=== PATIENT | female | born 1975 | race Caucasian/White ===

== ENCOUNTER 2016-10-11 14:47 | Day surgery (SDC) | payer BC ==
[2016-10-11] MEDS ORDERED: NS 0.9% 1000 ML* 1,000 ML IV ONE (14:58)
[2016-10-11 15:37] LABS: Hematocrit 42 % (35-47); Hemoglobin 13.7 g/dl (12.0-16.0); Mean Corpuscular HGB Conc 33 g/dl (31-36); Mean Corpuscular Hemoglobin 30 pg (27-31); Mean Corpuscular Volume 91 fL (80-97); Mean Platelet Volume 9 um3 (7.4-10.4); Red Blood Count 4.58 10^6/ul (4.0-5.4); Red Cell Distribution Width 14 % (10.5-15); White Blood Count 9.5 10^3/ul (3.5-10.8)
[2016-10-11 15:53] LABS: ALT 17 U/L (7-52); AST 13 U/L (13-39); Albumin 4.5 g/dL (3.2-5.2); Alkaline Phosphatase 54 U/L (34-104); Anion Gap 4 mmol/L (2-11); BUN/Creatinine Ratio 14.6 (8-20); Blood Urea Nitrogen 13 mg/dL (6-24); C Reactive Protein 38.99 mg/L (< 5.00); CO2 Carbon Dioxide 28 mmol/L (22-32); Calcium 9.8 mg/dL (8.6-10.3); Chloride 103 mmol/L (101-111); EGFR African American 89.5 (>60); EGFR Non-African American 69.6 (>60); Globulin 2.8 g/dL (2-4); Glucose 83 mg/dL (70-100); Lipase 18 U/L (11.0-82.0); Potassium 3.5 mmol/L (3.5-5.0); Sodium 135 mmol/L (133-145); Total Protein 7.3 g/dL (6.4-8.9)
[2016-10-11 16:08] LABS: Urine Bilirubin Negative (Negative); Urine Glucose Negative (Negative); Urine Nitrite Negative (Negative)
[2016-10-11] MEDS ORDERED: Iohexol 300* (CONTRAST) 10 ML SDV IV ONE (16:39)
--- NOTE | 2016-10-11 17:42 | RAD ---
INDICATION: Right lower quadrant abdominal pain. COMPARISON: There are no prior studies available for comparison. TECHNIQUE: A CT scan of the abdomen and pelvis was performed with intravenous and oral contrast following intravenous injection of 80 ml of Omnipaque 300 nonionic contrast. Contiguous axial sections were obtained from the lung bases through the symphysis pubis. Images were reconstructed in the coronal and sagittal planes. FINDINGS: The lung bases are clear. No pleural effusion is present. The liver and spleen are within normal limits without significant focal abnormality. No calcified gallstones are seen. The pancreas appears to be within normal limits in size. The kidneys and adrenal glands are normal in size. No hydronephrosis is seen. The right kidney is slightly ptotic. No significant focal renal abnormality is seen. There is a tiny 0.4 cm cyst in the mid pole of the left kidney. The aorta is normal in caliber and demonstrates homogeneous contrast opacification. No significant enlarged retroperitoneal lymph nodes are seen. The stomach, small and large bowel appear nondistended. There is a hypodense structure which is not well-defined posterior to the cecum measuring approximately 0.8 cm in thickness suspicious for a dilated appendix. This does not fill with contrast. There is no evidence for diverticulitis or colitis. The uterus is anteverted and normal in size. No free intraperitoneal air or fluid is seen. No significant focal osseous abnormality is seen. IMPRESSION: FOCAL AREA OF INCREASED SOFT TISSUE DENSITY POSTERIOR TO THE CECUM NONSPECIFIC ALTHOUGH SUSPICIOUS FOR ACUTE APPENDICITIS.
[2016-10-11] MEDS ORDERED: Bupivacaine 0.25% EPI 200,000* 30 ML SDV ONE (19:04)
[2016-10-11] MEDS ORDERED: ceFOXitin 2 GM IVPREMIX* 2 GM/50 ML BAG ONE (19:24)
[2016-10-11] MEDS ORDERED: fentaNYL* 50 MCG/ML 2 ML VIAL (100 MCG VIAL) ONE (19:31)
[2016-10-11] MEDS ORDERED: Rocuronium* 10 MG/ML VIAL ONE (19:35)
[2016-10-11] MEDS ORDERED: Acetaminophen TAB* 325 MG PO PRN (19:38)
[2016-10-11] MEDS ORDERED: HYDROmorphone INJ* 1 MG/ML CARPUJECT SYRINGE IV PRN (19:38)
[2016-10-11] MEDS ORDERED: oxyCODONE/Acetamin 5/325 MG* TAB PO PRN (19:38)
[2016-10-11] MEDS ORDERED: Ibuprofen TAB* 600 MG PO PRN (19:38)
[2016-10-11] MEDS ORDERED: Ondansetron INJ* 2 MG/ML VIAL IV PRN (19:38)
[2016-10-11] MEDS ORDERED: Ondansetron INJ* 2 MG/ML VIAL ONE (19:47)
[2016-10-11] MEDS ORDERED: Ketorolac INJ* 30 MG/ML 1 ML VIAL ONE (19:47)
[2016-10-11] MEDS ORDERED: Lidocaine 2% PF * 5 ML VIAL ONE (19:47)
[2016-10-11] MEDS ORDERED: Propofol* 10 MG/ML 20 ML BTL IV PUSH ONE (19:47)
[2016-10-11] MEDS ORDERED: Dexamethasone IV* 4 MG/ML 1 ML (4 MG) ONE (19:47)
[2016-10-11] MEDS ORDERED: Glycopyrrolate IV* 0.2 MG/ML 1 ML VIAL ONE (20:03)
[2016-10-11] MEDS ORDERED: Neostigmine Methylsulfate* 2 MG/2 ML SYRINGE ONE (20:03)
[2016-10-11] MEDS ORDERED: fentaNYL* 50 MCG/ML 2 ML VIAL (100 MCG VIAL) IV PRN (20:20)
[2016-10-11] MEDS ORDERED: DiMENhydriNATE IV* 50 MG/ML VIAL IV PUSH PRN (20:20)
--- NOTE | 2016-10-11 21:10 | ED ---
David Sharpe Billy, scribed for Santy Ruano MD on 10/11/16 at 1535 . Abdominal Pain/Female - HPI Summary HPI Summary: Patient is a 40 year-old female coming to [facility] presenting with constant RLQ abdominal pain today. She states that the pain began as right-sided periumbilical pain yesterday morning along with a bloating sensation, and has since moved to the RLQ today. 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 Pain severity 6/ 10. Pain is worse with movement and turning, and improved with certain positions. No nausea or vomiting. No fevers or chills. LMP 1 week ago. - History of Current Complaint Chief Complaint: EDAbdPain Stated Complaint: LOWER RIGHT ABD PAIN Time Seen by Provider: 10/11/16 15:26 Hx Obtained From: Patient Hx Last Menstrual Period: last week Onset/Duration: Gradual Onset, Lasting Hours, Still Present Timing: Constant Severity Initially: Moderate Severity Currently: Moderate Pain Intensity: 6 Pain Scale Used: 0-10 Numeric Location: Discrete At: RLQ Aggravating Factor(s): Movement Alleviating Factor(s): Position Associated Signs and Symptoms: Positive: Diarrhea. Negative: Fever, Nausea, Vomiting Allergies/Adverse Reactions: Allergies Allergy/AdvReac Type Severity Reaction Status Date / Time Ciprofloxacin [From Cipro] Allergy JOINT PAIN Verified 10/11/16 14:48 AND SWELLING, RASH ENVIRONMENTAL Allergy RUNNY, Uncoded 10/11/16 14:48 NOSE, WATERY EYES PMH/Surg Hx/FS Hx/Imm Hx Cardiovascular History: Denies: Other Cardiovascular Problems/Disorders Respiratory History: Denies: Other Respiratory Problems/Disorders GI History: Denies: Other GI Disorders Musculoskeletal History: Denies: Other Musculoskeletal History Sensory History: Reports: Hx Contacts or Glasses - CONTACTS Denies: Hx Hearing Aid Opthamlomology History: Reports: Hx Contacts or Glasses - CONTACTS Neurological History: Denies: Other Neuro Impairments/Disorders Psychiatric History: Reports: Hx Anxiety - NO MEDS, Hx Depression - NO MEDS - Surgical History Surgery Procedure, Year, and Place: TONSILECTOMY, 2004, [facility]. D&C 2013 Hx Anesthesia Reactions: No Infectious Disease History: No Infectious Disease History: Denies: Traveled Outside the [place] in Last 30 Days - Family History Known Family History: Negative: Cardiac Disease, Hypertension, Diabetes - Social History Alcohol Use: Occasionally Alcohol Amount: 1-2 PER WEEK Substance Use Type: Reports: None Smoking Status (MU): Never Smoked Tobacco Have You Smoked in the Last Year: No Review of Systems Negative: Fever, Chills Positive: Abdominal Pain, Diarrhea. Negative: Vomiting, Nausea All Other Systems Reviewed And Are Negative: Yes Physical Exam - Summary Physical Exam Summary: VITAL SIGNS: Reviewed. GENERAL: Patient is a well developed and nourished female who is lying comfortable in the stretcher. Patient is not in any acute respiratory distress. HEAD AND FACE: Normocephalic and atraumatic. EYES: PERRLA, EOMI x 2, No injected conjunctiva. EARS: Hearing grossly intact. Ear canals and tympanic membranes are WNL. MOUTH: Oropharynx within normal limits. NECK: Supple, trachea is midline, no adenopathy, no JVD. CHEST: Symmetric, no tenderness at palpation LUNGS: Clear to auscultation bilaterally. No wheezing or crackles. CVS: RRR,, S1 and S2 present, no murmurs or gallops appreciated. ABDOMEN: Soft, RLQ tenderness. No signs of distention. Positive bowel sounds. No rebound no guarding, and no masses palpated. No abdominal bruit or pulsations. EXTREMITIES: FROM in all major joints, no edema, no cyanosis or clubbing. NEURO: Alert and oriented x 3. No acute neurological deficits. Speech is normal. SKIN: Dry and warm Triage Information Reviewed: Yes Vital Signs On Initial Exam: Initial Vitals Temp Pulse Resp BP Pulse Ox 98.2 F 85 18 132/87 97 10/11/16 14:48 10/11/16 14:48 10/11/16 14:48 10/11/16 14:48 10/11/16 14:48 Vital Signs Reviewed: Yes - [place] Coma Scale Coma Scale Total: 15 Diagnostics - Vital Signs Vital Signs Temp Pulse Resp BP Pulse Ox 10/11/16 15:01 68 99 10/11/16 15:00 103/74 10/11/16 14:48 98.2 F 85 18 132/87 97 - Laboratory Lab Results: Lab Results 10/11/16 10/11/16 10/11/16 Range/Units 15:25 15:25 15:25 WBC 9.5 (3.5-10.8) 10^3/ul RBC 4.58 (4.0-5.4) 10^6/ul Hgb 13.7 (12.0-16.0) g/dl Hct 42 (35-47) % MCV 91 (80-97) fL MCH 30 (27-31) pg MCHC 33 (31-36) g/dl RDW 14 (10.5-15) % Plt Count 260 (150-450) 10^3/ul MPV 9 (7.4-10.4) um3 Neut % (Auto) 73.4 (38-83) % Lymph % (Auto) 16.5 L (25-47) % [place] % (Auto) 6.5 (1-9) % Eos % (Auto) 2.2 (0-6) % Baso % (Auto) 1.4 (0-2) % Absolute Neuts (auto) 6.9 (1.5-7.7) 10^3/ul Absolute Lymphs (auto) 1.6 (1.0-4.8) 10^3/ul Absolute Monos (auto) 0.6 (0-0.8) 10^3/ul Absolute Eos (auto) 0.2 (0-0.6) 10^3/ul Absolute Basos (auto) 0.1 (0-0.2) 10^3/ul Absolute Nucleated RBC 0.01 10^3/ul Nucleated RBC % 0.1 INR (Anticoag Therapy) 0.94 (0.89-1.11) APTT 30.5 (26.0-36.3) seconds Sodium 135 (133-145) mmol/L Potassium 3.5 (3.5-5.0) mmol/L Chloride 103 (101-111) mmol/L Carbon Dioxide 28 (22-32) mmol/L Anion Gap 4 (2-11) mmol/L BUN 13 (6-24) mg/dL Creatinine 0.89 (0.51-0.95) mg/dL Est GFR ( Amer) 89.5 (>60) Est GFR (Non-Af Amer) 69.6 (>60) BUN/Creatinine Ratio 14.6 (8-20) Glucose 83 (70-100) mg/dL Lactic Acid (0.5-2.0) mmol/L Calcium 9.8 (8.6-10.3) mg/dL Total Bilirubin 0.40 (0.2-1.0) mg/dL AST 13 (13-39) U/L ALT 17 (7-52) U/L Alkaline Phosphatase 54 (34-104) U/L C-Reactive Protein 38.99 H (< 5.00) mg/L Total Protein 7.3 (6.4-8.9) g/dL Albumin 4.5 (3.2-5.2) g/dL Globulin 2.8 (2-4) g/dL Albumin/Globulin Ratio 1.6 (1-3) Lipase 18 (11.0-82.0) U/L Beta HCG, Quant < 0.60 mIU/mL Urine Color Urine Appearance Urine pH (5-9) Ur Specific [place] (1.010-1.030) Urine Protein (Negative) Urine Ketones (Negative) Urine Blood (Negative) Urine Nitrate (Negative) Urine Bilirubin (Negative) Urine Urobilinogen (Negative) Ur Leukocyte Esterase (Negative) Urine Glucose (Negative) 10/11/16 10/11/16 Range/Units 15:25 16:00 WBC (3.5-10.8) 10^3/ul RBC (4.0-5.4) 10^6/ul Hgb (12.0-16.0) g/dl Hct (35-47) % MCV (80-97) fL MCH (27-31) pg MCHC (31-36) g/dl RDW (10.5-15) % Plt Count (150-450) 10^3/ul MPV (7.4-10.4) um3 Neut % (Auto) (38-83) % Lymph % (Auto) (25-47) % [place] % (Auto) (1-9) % Eos % (Auto) (0-6) % Baso % (Auto) (0-2) % Absolute Neuts (auto) (1.5-7.7) 10^3/ul Absolute Lymphs (auto) (1.0-4.8) 10^3/ul Absolute Monos (auto) (0-0.8) 10^3/ul Absolute Eos (auto) (0-0.6) 10^3/ul Absolute Basos (auto) (0-0.2) 10^3/ul Absolute Nucleated RBC 10^3/ul Nucleated RBC % INR (Anticoag Therapy) (0.89-1.11) APTT (26.0-36.3) seconds Sodium (133-145) mmol/L Potassium (3.5-5.0) mmol/L Chloride (101-111) mmol/L Carbon Dioxide (22-32) mmol/L Anion Gap (2-11) mmol/L BUN (6-24) mg/dL Creatinine (0.51-0.95) mg/dL Est GFR ( Amer) (>60) Est GFR (Non-Af Amer) (>60) BUN/Creatinine Ratio (8-20) Glucose (70-100) mg/dL Lactic Acid 0.7 (0.5-2.0) mmol/L Calcium (8.6-10.3) mg/dL Total Bilirubin (0.2-1.0) mg/dL AST (13-39) U/L ALT (7-52) U/L Alkaline Phosphatase (34-104) U/L C-Reactive Protein (< 5.00) mg/L Total Protein (6.4-8.9) g/dL Albumin (3.2-5.2) g/dL Globulin (2-4) g/dL Albumin/Globulin Ratio (1-3) Lipase (11.0-82.0) U/L Beta HCG, Quant mIU/mL Urine Color Straw Urine Appearance Clear Urine pH 6.0 (5-9) Ur Specific [place] 1.003 L (1.010-1.030) Urine Protein Negative (Negative) Urine Ketones Negative (Negative) Urine Blood Negative (Negative) Urine Nitrate Negative (Negative) Urine Bilirubin Negative (Negative) Urine Urobilinogen Negative (Negative) Ur Leukocyte Esterase Negative (Negative) Urine Glucose Negative (Negative) Result Diagrams: 10/11/16 15:25 10/11/16 15:25 Lab Statement: Any lab studies that have been ordered have been reviewed, and results considered in the medical decision making process. - CT abd/pel w CT Interpretation Completed By: Radiologist - FOCAL AREA OF INCREASED SOFT TISSUE DENSITY POSTERIOR TO THE CECUM NONSPECIFIC ALTHOUGH SUSPICIOUS FOR ACUTE APPENDICITIS. Abdominal Pain Fem Course/Dx - Course Course Of Treatment: Patient is a 40 year-old female coming to [facility] presenting with constant RLQ abdominal pain today. She states that the pain began as right- sided periumbilical pain yesterday morning along with a bloating sensation, and has since moved to the RLQ today. 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 Pain severity 6/ 10. Pain is worse with movement and turning, and improved with certain positions. No nausea or vomiting. No fevers or chills. LMP 1 week ago. Bloodwork WNL except for increased CRP. UA is negative. CT abd/pel suspicious for acute appendicitis. In the ED course, she was given IV fluids and did not require pain medications. I discussed the findings and test results with Dr. Garland who came and examined pt and accepted pt for possible appendectomy. Pt is A&Ox3, and hemodynamically stable. - Diagnoses Differential Diagnosis: Positive: Appendicitis, Constipation, Diverticulitis, Ovarian Cyst, Pancreatitis, Renal Colic Provider Diagnoses: Acute appendicitis - Provider Notifications Discussed Care Of Patient With: Dr. Garland (surgery) @ 1750: will review the CT imaging and return call. Dr. Garland (surgery) @ 1857: accepts admission. Discharge - Discharge Plan Condition: Good Disposition: ADMITTED TO [facility] The documentation as recorded by the David chandler Billy accurately reflects the service I personally performed and the decisions made by me, Santy Ruano MD.
[2016-10-11] MEDS ORDERED: oxyCODONE/Acetamin 5/325 MG* TAB ONE (21:33)
[2016-10-11 21:50] VITALS: BP 145/72
--- NOTE | 2016-10-11 22:46 | HP ---
CC: Qasim Garland MD; Tanner Loredo MD; [facility] HISTORY AND PHYSICAL: DATE OF ADMISSION: 10/11/16 CHIEF COMPLAINT: Abdominal pain. HISTORY AND PHYSICAL: The patient is a 40-year-old female who was in her usual state of good health. Earlier today, she started to feel umbilical pain. She has a little umbilical hernia and thought may be was related to the hernia, but then the pain shifted lower and she did have some queasiness, but no vomiting. No fever. No chills. No diarrhea. She did have a normal bowel movement recently. PAST MEDICAL HISTORY: Reveals she gave via about 20 months ago , uncomplicated delivery. No unusual bleeding or clotting. She had a history of a D&C for a miscarriage several years ago during which she had lot of hemorrhage and required a transfusion. She had an uneventful tonsillectomy about 15 years ago. She denies chronic medical illnesses. She is on no regular medications other than control and some vitamins and supplements. She quotes allergy to CIPRO. SOCIAL HISTORY: She is . Has a [id number] daughter. 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 She is a nonsmoker. Does not really drink. Does not use any drugs or illicit substances. FAMILY HISTORY: Noncontributory. No bleeding tendencies or anesthesia reactions or no major GI. REVIEW OF SYSTEMS: Benign. No chest pain, heart pain, angina, or other cardiac. No emphysema, bronchitis, or other major lung disease. No diabetes, thyroid, or other major endocrine. No major GI history. history: Negative for kidney stones or bladder infections. She does have gynecologic history as noted above. She has no major neuromuscular or psych issues. She has occasional anxiety. She has no major trauma or injury. No bleeding tendencies or anesthesia reactions. PHYSICAL EXAMINATION GENERAL: She is a well-developed, well-nourished female, consistent with stated age. Skin is warm and well perfused. She is not diaphoretic. She is not jaundiced. VITAL SIGNS: Temperature 98.2; pulse 66, regular; respirations 18, unlabored; blood pressure 106/62, O2 sat 99%. She is 5 feet and 232 pounds with a BMI of 24. HEENT: Benign. NECK: Supple without any adenopathy or thyromegaly. LUNGS: Clear bilaterally. HEART: Regular without any abnormal sounds. BREAST: Deferred. ABDOMEN: Soft, nondistended, exquisitely tender in the right lower quadrant with referred tenderness, Rovsing sign, cough, and percussion tenderness, rebound tenderness in the right lower quadrant. She does have a small reducible umbilical hernia, well-healed incision from her previous section. Extremities: Well perfused and without edema. LABORATORY DATA: Revealed normal white blood count with left shift and normal electrolytes. CRP is elevated at 39. HCG is less than 0.6. CT scan shows a questionable inflammatory mass behind the cecum, but not definitive for appendicitis. IMPRESSION: A 40-year-old female with signs and symptoms consistent with early acute appendicitis. I discussed this with her and her at some length. We talked about the pros and cons of proceeding with laparoscopic appendectomy versus antibiotic treatment, appendicitis. She understands both of the options, the risks, the recovery, the recurrence rate and so forth. All of their questions have been answered and they would like to proceed with laparoscopic appendectomy this evening and we will do so as the operative schedule permits. [id number]/[facility] #: [id number] SUSANNA
--- NOTE | 2016-10-12 03:26 | OP ---
CC: Dr. Qasim Garland; Dr. Tanner Loredo OPERATIVE REPORT: DATE OF OPERATION: 10/11/16 DATE OF : 71 SURGEON: Qasim Garland MD MEDICAL RADIATION TECH: None. ANESTHESIOLOGIST: Dr. Wise. ANESTHESIA: General anesthetic, local infiltration. PRE-OP DIAGNOSES: Appendicitis and umbilical hernia. POST-OP DIAGNOSES: Appendicitis and umbilical hernia. OPERATIVE PROCEDURE: Laparoscopic appendectomy and umbilical hernia repair. DESCRIPTION OF PROCEDURE: The patient was supine on the operative table. After adequate general ane sthetic, compression stockings, Hu Hugger warmer and intravenous antibiotics, the abdomen was prep ped with antiseptic, draped in a sterile fashion. Local infiltrative anesthesia was administered an d a small infraumbilical curvilinear incision was created. Umbilical hernia was identified, dissect ed free and reduced and the peritoneum was entered and the blunt port cannula was placed. Insufflat ion was carried out with carbon dioxide. There was no underlying injury. Additional cannulae 5-mm left suprapubic and left lower quadrant placed through small stab wounds under direct vision. Local anesthetic was administered at all sites. The uterus, tubes, and ovaries were normal and terminal ileum was normal. The appendix was acutely inflamed, but not suppurative nor perforated. The base of the appendix was divided using an Endo REHAN stapler 45 mm vazquez cartridge. The mesoappendix was div ided using a templeton load and hemostasis was confirmed. The appendix was removed with the retrieval ba g and the umbilical hernia was repaired using running 0 Vicryl. The umbilical skin was tacked back down with 4-0 Vicryl which was also used to close the skin in all cases followed by Steri-Strips. S he tolerated the procedure well, was awakened and brought to recovery in good condition. There are no complications. No drains. Pathological specimen appendix. Sponge and instrument counts correct . Estimated blood loss is less than 20 mL. [id number]/[facility] #: [id number]
== END 2016-10-11 19:25 | disposition home or self-care (01) ==
LOC: ED 14:47 → OR 19:25
PROVIDERS: ATTEND Surgery
DX: K35.80 Unspecified acute appendicitis (principal); K42.9 Umbilical hernia without obstruction or gangrene
CPT/HCPCS: 36415; 74177; 80053; 81003; 83605; 83690; 84702; 85025; 85610; 85730; 86140; 88304; 96374; 99282; A9270-GY; C1776; J0694; J1100; J1885; J2405; J2704; J3010; Q9967